=== PATIENT | male | born 1995 | race Caucasian/White ===

== ENCOUNTER → 2020-08-17 | Outpatient (CLI) | payer OTHER ==
[~2020-08-17] MED LIST: Bentyl20 MG PO; OMEP20ER PO; ONDA4ODT MM; PROM25 PO; RXONDA4ODT MM
[2020-08-19 00:10] LABS: CHLAMYDIA TRACHOMATIS, NAA Negative (Negative)
== END | disposition home or self-care (01) ==
LOC: LAB UCHC 09:10 → LAB SHORT 09:10
PROVIDERS: Nurse Practitioner Family
DX: Z77.21 Contact with and (suspected) exposure to potentially hazardous body fluids (principal)
CPT/HCPCS: 87491; 87591

== ENCOUNTER 2021-11-24 08:08 | Emergency (ER) | payer OTHER ==
[~2021-11-24] VITALS: Ht 180.3 cm; Wt 74.8 kg
[2021-11-24] MEDS ORDERED: Norco 5-325 Ta1 EACH PO (08:50)
== END 2021-11-24 09:14 | disposition home or self-care (01) ==
LOC: ER 08:08
DX: K08.89 Other specified disorders of teeth and supporting structures (principal); Z88.0 Allergy status to penicillin; Z88.2 Allergy status to sulfonamides; Z72.0 Tobacco use
CPT/HCPCS: 99282